=== PATIENT | female | born 1995 | race Caucasian/White ===

== ENCOUNTER 2016-11-10 09:44 | Emergency (ER) | payer SELFPAY ==
--- NOTE | 2016-11-10 10:35 | EDM.PDOC ---
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 No abdominal pain, pelvic cramping, vaginal itch or discharge , dysuria, lightheadedness or any other symptoms. She denies STD. - Related Data Allergies/ADRs: Allergies Allergy/AdvReac Type Severity Reaction Status Date / Time No Known Allergies Allergy Verified 11/10/16 09:51 Home Meds: Home Meds . 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 ED EXAM - Physical Exam Exam: See Below Exam Limited By: No limitations General Appearance: alert, no apparent distress Ears: normal external exam Nose: normal inspection Throat/Mouth: Normal inspection Head: atraumatic, normocephalic Neck: normal inspection Respiratory/Chest: no respiratory distress, lungs clear Cardiovascular: regular rate, rhythm GI/Abdominal: soft, non tender, no distention (Female) Exam: Normal bimanual exam, Normal external exam, Vaginal bleeding. No: Cervical dilatation, Cervical lesions, Cervix motion tenderness, Products of conception, tissue present in cervix/vagina Back Exam: normal inspection Extremities: normal inspection Neurological: alert, oriented Psychiatric: normal affect, normal mood Skin Exam: Warm, Dry, Intact, Normal color, No rash Lymphatic: no adenopathy Course - Vital Signs Last Recorded V/S: Last Vital Signs Temp 37.1 C 11/10/16 10:16 Pulse 89 11/10/16 10:16 Resp 16 11/10/16 10:16 BP 123/75 11/10/16 10:16 Pulse Ox 98 11/10/16 10:16 - Orders/Labs/Meds Orders: Active Orders 24 hr Category Date Time Status OB 1st Tri Sgl 1st Gest [US] Stat Exams 11/10/16 10:15 Ordered HCG QUANTITATIVE,SERUM [CHEM] Stat Lab 11/10/16 10:14 Ordered UA W/MICROSCOPIC [URIN] Stat Lab 11/10/16 10:14 Uncollected Labs: Laboratory Tests 11/10/16 11/10/16 Range/Units 10:26 10:26 WBC 12.78 H (4.0-11.0) K/uL RBC 4.98 (4.30-5.90) M/uL Hgb 14.8 (12.0-16.0) g/dL Hct 43.2 (36.0-46.0) % MCV 86.7 (80.0-98.0) fL MCH 29.7 (27.0-32.0) pg MCHC 34.3 (31.0-37.0) g/dL RDW Std Deviation 42.3 (28.0-62.0) fl RDW Coeff of Latrice 13 (11.0-15.0) % Plt Count 158 (150-400) K/uL MPV 12.10 H (7.40-12.00) fL Neut % (Auto) 67.4 (48.0-80.0) % Lymph % (Auto) 25.2 (16.0-40.0) % [place] % (Auto) 5.6 (0.0-15.0) % Eos % (Auto) 1.6 (0.0-7.0) % Baso % (Auto) 0.2 (0.0-1.5) % Neut # 8.6 H (1.4-5.7) K/uL Lymph # 3.2 H (0.6-2.4) K/uL [place] # 0.7 (0.0-0.8) K/uL Eos # 0.2 (0.0-0.7) K/uL Baso # 0.0 (0.0-0.1) K/uL Nucleated RBC % 0.0 /100WBC Nucleated RBCs # 0 K/uL Blood Type O POSITIVE - Re-Assessments/Exams Free Text/Narrative Re-Assessment/Exam: 11/10/16 11:57 Discussion with the patient. Although bleeding in early is fairly common and her ultrasound indicates live intrauterine pregnancies, she may still experience miscarriage. She is not anemic and is otherwise asymptomatic Departure - Departure Time of Disposition: 11:54 Disposition: Home, Self-Care 01 Condition: good Clinical Impression: Vaginal bleeding in patient at less than 20 weeks gestation Referrals: PCP,None [Primary Care Provider] - Matthew Greene MD [Physician] - Forms: ED Department Discharge Additional Instructions: 1. pelvic rest: No intercourse, tampons, douching 2. light activity, no heavy lifting 3. make an appointment promptly with LEGAL NURSE CONSULTANT. - My Orders Last 24 Hours: My Active Orders 11/10/16 10:14 HCG QUANTITATIVE,SERUM [CHEM] Stat UA W/MICROSCOPIC [URIN] Stat 11/10/16 10:15 OB 1st Tri Sgl 1st Gest [US] Stat - Assessment/Plan Last 24 Hours: My Active Orders 11/10/16 10:14 HCG QUANTITATIVE,SERUM [CHEM] Stat UA W/MICROSCOPIC [URIN] Stat 11/10/16 10:15 OB 1st Tri Sgl 1st Gest [US] Stat
--- NOTE | 2016-11-10 11:31 | US ---
EXAMINATION: Transvaginal obstetric ultrasound HISTORY: Bleeding COMPARISON: None TECHNIQUE: Grayscale, color Doppler, spectral Doppler images obtained transvaginally. FINDINGS: There is a twin live intrauterine identified. The heart rates are 163 and 170 bpm. There is a single gestational sac. A thin amniotic membrane is noted surrounding 1 fetus. S eparate yolk sacs are also noted. The crown-rump length of first 20 measures 1.69 cm and 1.59 cm for the second. This gives an estimated gestational age at 8 weeks and 1 day with an estimated date of delivery at 06/21/2017. Both the left and right ovaries appear grossly unremarkable demonstrating normal color and spectral Doppler flow. No significant free pelvic fluid. IMPRESSION: 1. Twin live intrauterine . 2. The twin appears to a monochorionic and diamniotic.
[2016-11-10 12:10] VITALS: BP 107/62
== END 2016-11-10 12:05 | disposition home or self-care (01) ==
LOC: MW.ED 09:44
DX: O46.8X2 Other antepartum hemorrhage, second trimester (principal); Z3A.20 20 weeks gestation of pregnancy; J45.909 Unspecified asthma, uncomplicated; F17.210 Nicotine dependence, cigarettes, uncomplicated
CPT/HCPCS: 36415; 76801; 76801-26; 81001; 84702; 85025; 86900; 86901; 99283; 99284-25